=== PATIENT | female | born 1995 | race Two or more races ===

== ENCOUNTER 2020-11-23 21:06 | Emergency (ER) | payer MEDICAID, OTHER | END 2020-11-24 00:58 | disposition left against medical advice (07) | LOC: ER 21:06 | DX: O20.9 Hemorrhage in early pregnancy, unspecified (principal); Z3A.12 12 weeks gestation of pregnancy; Z53.21 Procedure and treatment not carried out due to patient leaving prior to being seen by health care provider ==